=== PATIENT | female | born 1975 | race Caucasian/White ===

== ENCOUNTER → 2017-08-04 | Outpatient (CLI) | payer BC ==
[2005-09-09 07:01] VITALS: TEMP 97
== END ==
LOC: MC.RAD 07-14 10:20
DX: Z12.31 Encounter for screening mammogram for malignant neoplasm of breast (principal)

== ENCOUNTER → 2019-08-10 | Outpatient (CLI) | payer BC ==
[2005-09-09 07:01] VITALS: TEMP 97
== END ==
LOC: MC.RAD 09:15
DX: Z12.31 Encounter for screening mammogram for malignant neoplasm of breast (principal)

== ENCOUNTER → 2022-01-29 | Outpatient (CLI) | payer BC ==
[2005-09-09 07:01] VITALS: TEMP 97
== END ==
LOC: MC.RAD 12-09 11:00
DX: Z12.31 Encounter for screening mammogram for malignant neoplasm of breast (principal)

== ENCOUNTER → 2022-02-03 | Outpatient (CLI) | payer BC | LOC: MC.RAD 12:24 | DX: N60.01 Solitary cyst of right breast (principal) ==

== ENCOUNTER → 2023-02-01 | Outpatient (CLI) | payer BC | LOC: MC.RAD 13:51 | DX: Z12.31 Encounter for screening mammogram for malignant neoplasm of breast (principal) ==